=== PATIENT | male | born 1940 | race Caucasian/White ===

== ENCOUNTER 2019-09-13 12:29 | Inpatient (IN) | payer OTHER ==
[~2019-09-13] VITALS: Ht 182.9 cm; Wt 95.6 kg
[~2019-09-13 12:29] MED LIST: ACET-2065 PO; ATOR20TA37 PO; DILT-8 PO; ESOM40CA PO; FLEC100T PO; MULT-516 PO; PANT40TA5 PO; PRAV10TA2 PO; TRAV2.5D5 EACHEYE; VIT1TABL34 PO; WARF7.5T PO
--- NOTE | 2019-09-13 12:49 | NUR ---
PT PLACED ON HEART MONITOR, BP CUFF, PULSE OX. PT TENDER WITH PALPATION TO BACK BUT DENIES PAIN. NO NEURO DEFICITS NOTED. UNABLE TO DETERMINE IF MENTATION IS DIFFERENT FROM USUAL D/T HX OF DEMENTIA. PT FOLLOWS COMMANDS, SINGH EQUALLY. RA SAT 95-96%. IV SL IN PLACE.
[2019-09-13] MEDS ORDERED: SODIUM CHLORIDE 0.9% 1,000ML IVBOLUS ONE (13:00)
[2019-09-13] MEDS ORDERED: SODIUM CHLORIDE FLUSH 10ML SYR IVF ONE (13:00)
[2019-09-13 13:14] LABS: BASOPHILS # (AUTO) 0.01 x10^3/uL (0-0.1); BASOPHILS % (AUTO) 0 % (0-1); EOSINOPHILS % (AUTO) 0 % (1-7); LYMPHOCYTES # (AUTO) 0.63 x10^3/uL (1-3.4); LYMPHOCYTES % (AUTO) 4 % (22-44); MD NO; MEAN CORPUSCULAR HEMOGLOBIN 30.2 pg (27.5-34.5); MEAN CORPUSCULAR HGB CONC 33.1 g/dL (33.2-36.2); MEAN CORPUSCULAR VOLUME 91.3 fL (81-97); MEAN PLATELET VOLUME 8.1 fL (7.4-10.4); MONOCYTES # (AUTO) 0.64 x10^3/uL (0.2-0.8); MONOCYTES % (AUTO) 5 % (2-9); NEUTROPHILS # (AUTO) 12.93 x10^3/uL (1.8-6.8); NEUTROPHILS % (AUTO) 91 % (42-75); PLATELET COUNT 194 x10^3/uL (130-400); RED BLOOD COUNT 4.82 x10^6/uL (4.38-5.82)
[2019-09-13 13:18] LABS: INTERNATIONAL NORMALIZED RATIO 1.12 (0.93-1.1); PROTHROMBIN TIME 11.9 Seconds (9.6-11.5)
[2019-09-13 13:22] LABS: ALANINE AMINOTRANSFERASE 39 U/L (12-78); ALBUMIN 3.5 g/dL (3.4-5.0); ANION GAP 10 mmol/L (5-15); CALCIUM 8.6 mg/dL (8.5-10.1); CHLORIDE 109 mmol/L (98-107); CREATININE 1.34 mg/dL (0.7-1.3)
[2019-09-13 13:24] LABS: ALKALINE PHOSPHATASE 87 U/L (45-117); BILIRUBIN,TOTAL 0.9 mg/dL (0.2-1.0); TROPONIN I 0.073 ng/mL (0.000-0.045)
[2019-09-13 13:26] LABS: SALICYLATE LEVEL < 1.7 mg/dL (2.8-20.0)
--- NOTE | 2019-09-13 13:29 | NUR ---
PT TO CT.
[2019-09-13 13:45] LABS: CREATINE KINASE, TOTAL 2908 U/L (39-308)
--- NOTE | 2019-09-13 13:50 | NUR ---
PT BACK FROM CT. SLEEPING, NAD. AT BS. CALL TO LAB INQUIRING ON UA STILL SHOWING ACTIVE AND URINE TOX RESULTS BACK.
[2019-09-13 14:03] LABS: MICROSCOPIC AUTO
[2019-09-13] MEDS ORDERED: ASPIRIN 81 MG TABLET CHEW ONE (14:26)
[2019-09-13] MEDS ORDERED: ASPIRIN 81 MG TABLET CHEW PO ONE (14:30)
[2019-09-13] MEDS ORDERED: PIPERACILLIN/TAZO/PMX 3.375GM 50 ML IV ONE (15:00)
[2019-09-13] MEDS ORDERED: PIPERACILLIN/TAZO/PMX 3.375GM 50 ML ONE (15:13)
[2019-09-13] MEDS ORDERED: MEMA1CAP2 PO (15:27)
[2019-09-13] MEDS ORDERED: APIX5TAB PO (15:27)
--- NOTE | 2019-09-13 15:38 | NUR ---
ZOSYN INFUSING PER ERP ORDER. BC X 2 DRAWN PREVIOUSLY. [facility] IN TO SEE PT. PT SLEEPING INTERMITTENTLY. ORIENTED X PERSON, PLACE WHICH IS BASELINE PER . MED REC COMPLETED WITH ASSISTANCE.
[2019-09-13] MEDS ORDERED: ONDANSETRON 2MG/ML, 2ML IVPush PRN (16:00)
[2019-09-13] MEDS ORDERED: LABETALOL 5MG/ML, 20ML IVPush PRN (16:00)
[2019-09-13] MEDS ORDERED: ACETAMINOPHEN 325 MG TABLET PO PRN (16:00)
[2019-09-13] MEDS: DOXYCYCLINE 100 MG in DEXTROSE 5% 250 ML IV SCH (18:24)
[2019-09-13] MEDS: SODIUM CHLORIDE 0.9% 1,000 ML IV SCH ×2 (18:25→22:42)
[2019-09-13 18:54] VITALS: BP 140/88
[2019-09-13 19:08] LABS: TROPONIN I 0.077 ng/mL (0.000-0.045)
[2019-09-13] MEDS: LATANOPROST OPHTH 0.005%, 2.5ML EACHEYE SCH (20:46)
[2019-09-13] MEDS: APIXABAN 5 MG TABLET PO SCH (20:46)
[2019-09-13] MEDS ORDERED: TRAVOPROST OPHTH 0.004%, 2.5ML EACHEYE SCH (21:00)
[2019-09-13] MEDS: AMPICILLIN/SULBACTAM 1,500 MG in SODIUM CHLORIDE 0.9% 50 ML IV SCH (22:39)
[2019-09-14 00:57] LABS: TROPONIN I 0.069 ng/mL (0.000-0.045)
[2019-09-14 02:01] VITALS: BP 141/87
[2019-09-14] MEDS: AMPICILLIN/SULBACTAM 1,500 MG in SODIUM CHLORIDE 0.9% 50 ML IV SCH ×4 (03:41→21:39)
[2019-09-14] MEDS: SODIUM CHLORIDE 0.9% 1,000 ML IV SCH ×3 (04:56→23:40)
[2019-09-14] MEDS: DOXYCYCLINE 100 MG in DEXTROSE 5% 250 ML IV SCH ×2 (04:56→17:04)
[2019-09-14 06:14] LABS: BASOPHILS # (AUTO) 0.01 x10^3/uL (0-0.1); BASOPHILS % (AUTO) 0 % (0-1); EOSINOPHILS # (AUTO) 0.16 x10^3/uL (0-0.4); EOSINOPHILS % (AUTO) 1 % (1-7); LYMPHOCYTES # (AUTO) 1.26 x10^3/uL (1-3.4); LYMPHOCYTES % (AUTO) 11 % (22-44); MD NO; MEAN CORPUSCULAR HEMOGLOBIN 29.5 pg (27.5-34.5); MEAN CORPUSCULAR HGB CONC 32.2 g/dL (33.2-36.2); MEAN CORPUSCULAR VOLUME 91.6 fL (81-97); MEAN PLATELET VOLUME 8.6 fL (7.4-10.4); MONOCYTES # (AUTO) 0.74 x10^3/uL (0.2-0.8); MONOCYTES % (AUTO) 6 % (2-9); NEUTROPHILS # (AUTO) 9.65 x10^3/uL (1.8-6.8); NEUTROPHILS % (AUTO) 82 % (42-75); PLATELET COUNT 184 x10^3/uL (130-400); RED BLOOD COUNT 4.87 x10^6/uL (4.38-5.82); RED CELL DISTRIBUTION WIDTH 13.1 % (9.4-14.8)
[2019-09-14 06:19] LABS: ALANINE AMINOTRANSFERASE 50 U/L (12-78); ALBUMIN 3.1 g/dL (3.4-5.0); ANION GAP 7 mmol/L (5-15); CALCIUM 8.6 mg/dL (8.5-10.1); CHLORIDE 113 mmol/L (98-107); CREATININE 0.91 mg/dL (0.7-1.3)
[2019-09-14 06:21] LABS: ALKALINE PHOSPHATASE 83 U/L (45-117); BILIRUBIN,TOTAL 1.6 mg/dL (0.2-1.0); TOTAL PROTEIN 6.5 g/dL (6.4-8.2)
[2019-09-14 07:11] VITALS: BP 117/79
[2019-09-14] MEDS: APIXABAN 5 MG TABLET PO SCH (09:03)
--- NOTE | 2019-09-14 13:52 | NUR ---
Rec: [employer] intervention in a [facility]. Addendum: 09/14/19 at 1352 by Tatyana KAUR Amended: Links added.
[2019-09-14 15:25] VITALS: BP 113/66
[2019-09-14 18:39] VITALS: BP 96/53
[2019-09-14] MEDS: LATANOPROST OPHTH 0.005%, 2.5ML EACHEYE SCH (20:53)
[2019-09-14 22:08] LABS: MICROSCOPIC INDICATED
[2019-09-15 01:11] VITALS: BP 135/79
[2019-09-15] MEDS: AMPICILLIN/SULBACTAM 1,500 MG in SODIUM CHLORIDE 0.9% 50 ML IV SCH ×4 (03:59→21:49)
[2019-09-15] MEDS: DOXYCYCLINE 100 MG in DEXTROSE 5% 250 ML IV SCH ×2 (05:03→17:15)
[2019-09-15] MEDS: SODIUM CHLORIDE 0.9% 1,000 ML IV SCH (05:04)
[2019-09-15 05:44] LABS: BASOPHILS # (AUTO) 0.05 x10^3/uL (0-0.1); BASOPHILS % (AUTO) 1 % (0-1); EOSINOPHILS # (AUTO) 0.34 x10^3/uL (0-0.4); EOSINOPHILS % (AUTO) 4 % (1-7); LYMPHOCYTES # (AUTO) 1.77 x10^3/uL (1-3.4); LYMPHOCYTES % (AUTO) 19 % (22-44); MD NO; MEAN CORPUSCULAR HEMOGLOBIN 30.1 pg (27.5-34.5); MEAN CORPUSCULAR HGB CONC 32.5 g/dL (33.2-36.2); MEAN CORPUSCULAR VOLUME 92.7 fL (81-97); MEAN PLATELET VOLUME 8.3 fL (7.4-10.4); MONOCYTES # (AUTO) 0.83 x10^3/uL (0.2-0.8); MONOCYTES % (AUTO) 9 % (2-9); NEUTROPHILS % (AUTO) 68 % (42-75); PLATELET COUNT 169 x10^3/uL (130-400); RED BLOOD COUNT 4.52 x10^6/uL (4.38-5.82); RED CELL DISTRIBUTION WIDTH 13.2 % (9.4-14.8)
[2019-09-15 05:46] LABS: ALANINE AMINOTRANSFERASE 47 U/L (12-78); ALBUMIN 2.7 g/dL (3.4-5.0); ANION GAP 7 mmol/L (5-15); CALCIUM 8.1 mg/dL (8.5-10.1); CHLORIDE 111 mmol/L (98-107)
[2019-09-15 06:04] LABS: ALKALINE PHOSPHATASE 68 U/L (45-117); BILIRUBIN,TOTAL 1.6 mg/dL (0.2-1.0); CREATINE KINASE, TOTAL 3236 U/L (39-308); CREATININE 0.79 mg/dL (0.7-1.3)
[2019-09-15 06:54] VITALS: BP 155/96
--- NOTE | 2019-09-15 13:51 | NUR ---
Do not anticipate need for NAPRAPATH intervention at time of discharge. Addendum: 09/15/19 at 1352 by Tatyana KAUR Amended: Links added.
[2019-09-15 13:59] VITALS: BP 142/84
[2019-09-15] MEDS ORDERED: SODIUM CHLORIDE 0.9% 1,000 ML IV SCH (15:35)
[2019-09-15] MEDS: APIXABAN 5 MG TABLET PO SCH (17:15)
[2019-09-15] MEDS: METOPROLOL TARTRATE 25 MG TAB PO SCH (17:17)
[2019-09-15 18:32] VITALS: BP 158/84
[2019-09-15] MEDS: LATANOPROST OPHTH 0.005%, 2.5ML EACHEYE SCH (21:49)
[2019-09-16 00:32] VITALS: BP 124/72
[2019-09-16] MEDS: AMPICILLIN/SULBACTAM 1,500 MG in SODIUM CHLORIDE 0.9% 50 ML IV SCH ×2 (03:47→09:02)
[2019-09-16 04:52] LABS: BASOPHILS # (AUTO) 0.03 x10^3/uL (0-0.1); BASOPHILS % (AUTO) 0 % (0-1); EOSINOPHILS # (AUTO) 0.34 x10^3/uL (0-0.4); EOSINOPHILS % (AUTO) 4 % (1-7); LYMPHOCYTES # (AUTO) 1.46 x10^3/uL (1-3.4); LYMPHOCYTES % (AUTO) 18 % (22-44); MD NO; MEAN CORPUSCULAR VOLUME 90.8 fL (81-97); MEAN PLATELET VOLUME 8.2 fL (7.4-10.4); MONOCYTES # (AUTO) 0.53 x10^3/uL (0.2-0.8); MONOCYTES % (AUTO) 6 % (2-9); NEUTROPHILS % (AUTO) 71 % (42-75); PLATELET COUNT 174 x10^3/uL (130-400); RED BLOOD COUNT 4.65 x10^6/uL (4.38-5.82)
[2019-09-16 05:00] LABS: ALBUMIN 2.8 g/dL (3.4-5.0); ANION GAP 7 mmol/L (5-15); CALCIUM 8.2 mg/dL (8.5-10.1); CHLORIDE 110 mmol/L (98-107)
[2019-09-16 05:15] LABS: ALANINE AMINOTRANSFERASE 51 U/L (12-78); ALKALINE PHOSPHATASE 72 U/L (45-117); BILIRUBIN,TOTAL 1.2 mg/dL (0.2-1.0); CREATINE KINASE, TOTAL 2233 U/L (39-308); TOTAL PROTEIN 6.1 g/dL (6.4-8.2)
[2019-09-16] MEDS: METOPROLOL TARTRATE 25 MG TAB PO SCH ×2 (05:27→17:33)
[2019-09-16] MEDS: DOXYCYCLINE 100 MG in DEXTROSE 5% 250 ML IV SCH (05:28)
[2019-09-16 06:59] VITALS: BP 145/85
[2019-09-16] MEDS: APIXABAN 5 MG TABLET PO SCH ×2 (09:02→21:11)
[2019-09-16] MEDS: LACTATED RINGERS 1,000 ML IV SCH ×2 (10:37→17:33)
[2019-09-16] MEDS: AMOXICILLIN/CLAV 875-125MG TABLET PO SCH ×2 (10:37→21:11)
[2019-09-16] MEDS: DOXYCYCLINE 100MG TABLET PO SCH ×2 (10:37→21:11)
[2019-09-16 12:40] VITALS: BP_SYST 139; BP_SYST 142; BP_DIAS 89; BP_DIAS 90
[2019-09-16 16:31] VITALS: BP 127/86
[2019-09-16 18:48] VITALS: BP 116/73
[2019-09-16] MEDS: LATANOPROST OPHTH 0.005%, 2.5ML EACHEYE SCH (21:27)
[2019-09-17 00:30] VITALS: BP 145/83
[2019-09-17] MEDS: LACTATED RINGERS 1,000 ML IV SCH ×3 (01:58→17:56)
[2019-09-17 06:24] VITALS: BP 169/99
[2019-09-17 06:26] LABS: ALANINE AMINOTRANSFERASE 48 U/L (12-78); ALBUMIN 2.7 g/dL (3.4-5.0); ANION GAP 7 mmol/L (5-15); CALCIUM 8.3 mg/dL (8.5-10.1); CHLORIDE 109 mmol/L (98-107); CREATININE 0.74 mg/dL (0.7-1.3)
[2019-09-17] MEDS: METOPROLOL TARTRATE 25 MG TAB PO SCH ×2 (06:27→17:56)
[2019-09-17 06:30] LABS: ALKALINE PHOSPHATASE 73 U/L (45-117); BILIRUBIN,TOTAL 1.1 mg/dL (0.2-1.0); TOTAL PROTEIN 6.1 g/dL (6.4-8.2); TROPONIN I < 0.015 ng/mL (0.000-0.045)
[2019-09-17 06:41] LABS: CREATINE KINASE, TOTAL 1009 U/L (39-308)
[2019-09-17] MEDS: DOXYCYCLINE 100MG TABLET PO SCH ×2 (08:18→20:57)
[2019-09-17] MEDS: APIXABAN 5 MG TABLET PO SCH ×2 (08:18→20:57)
[2019-09-17] MEDS: AMOXICILLIN/CLAV 875-125MG TABLET PO SCH ×2 (08:18→20:57)
[2019-09-17 08:36] VITALS: BP 157/78
[2019-09-17] MEDS ORDERED: DOCUSATE 100 MG CAPSULE ONE (09:23)
[2019-09-17] MEDS: AMLODIPINE 10 MG TAB PO SCH (09:25)
[2019-09-17] MEDS ORDERED: POLYETHYLENE GLYCOL 17 GM PACKET PO PRN (09:30)
[2019-09-17] MEDS ORDERED: DOCUSATE 100 MG CAPSULE PO PRN (09:30)
[2019-09-17 12:44] VITALS: BP 104/68
[2019-09-17 19:49] VITALS: BP 149/91
[2019-09-17] MEDS: LATANOPROST OPHTH 0.005%, 2.5ML EACHEYE SCH (20:57)
[2019-09-18 02:00] VITALS: BP 141/86
[2019-09-18 06:09] LABS: ALBUMIN 2.8 g/dL (3.4-5.0); ANION GAP 6 mmol/L (5-15); CALCIUM 8.4 mg/dL (8.5-10.1); CHLORIDE 109 mmol/L (98-107)
[2019-09-18 06:14] LABS: ALANINE AMINOTRANSFERASE 47 U/L (12-78); ALKALINE PHOSPHATASE 76 U/L (45-117); BILIRUBIN,TOTAL 0.9 mg/dL (0.2-1.0); CREATINE KINASE, TOTAL 691 U/L (39-308); CREATININE 0.79 mg/dL (0.7-1.3); TOTAL PROTEIN 6.3 g/dL (6.4-8.2)
[2019-09-18 06:28] VITALS: BP 155/95
[2019-09-18] MEDS: METOPROLOL TARTRATE 25 MG TAB PO SCH (06:30)
[2019-09-18] MEDS: LACTATED RINGERS 1,000 ML IV SCH (06:30)
[2019-09-18] MEDS: AMLODIPINE 10 MG TAB PO SCH (09:55)
[2019-09-18] MEDS: APIXABAN 5 MG TABLET PO SCH (09:55)
[2019-09-18] MEDS: AMOXICILLIN/CLAV 875-125MG TABLET PO SCH (09:55)
[2019-09-18] MEDS: DOXYCYCLINE 100MG TABLET PO SCH (09:55)
[2019-09-18] MEDS ORDERED: LACTATED RINGERS 1,000 ML IV SCH (10:00)
[2019-09-18] MEDS ORDERED: METO25TA35 PO (11:25)
[2019-09-18] MEDS ORDERED: AMOX1TAB12 PO (11:25)
[2019-09-18] MEDS ORDERED: DOXY100T PO (11:25)
[2019-09-18] MEDS ORDERED: AMLO10TA8 PO (11:25)
[2019-09-18 16:34] VITALS: BP 160/83
== END 2019-09-18 17:25 | DRG 70 ==
LOC: ED 14:59 → EDIP 15:13 → 4NW 16:17 → 4WST 09-16 16:00
PROVIDERS: ADMIT Internal Medicine; ATTEND Internal Medicine
PROC: 0T9B70Z Drainage of Bladder with Drainage Device, Via Natural or Artificial Opening (ICD-10-PCS; principal; 2019-09-13)
DX: G93.41 Metabolic encephalopathy (principal); J69.0 Pneumonitis due to inhalation of food and vomit; M62.82 Rhabdomyolysis; D68.69 Other thrombophilia; N17.9 Acute kidney failure, unspecified; I24.8 Other forms of acute ischemic heart disease; F02.80 Dementia in other diseases classified elsewhere, unspecified severity, without behavioral disturbance, psychotic disturbance, mood disturbance, and anxiety; G30.1 Alzheimer's disease with late onset; I48.0 Paroxysmal atrial fibrillation; E78.5 Hyperlipidemia, unspecified; Z96.649 Presence of unspecified artificial hip joint; Z66 Do not resuscitate; R73.9 Hyperglycemia, unspecified; I10 Essential (primary) hypertension; Z03.818 Encounter for observation for suspected exposure to other biological agents ruled out; Z86.73 Personal history of transient ischemic attack (TIA), and cerebral infarction without residual deficits; Z79.899 Other long term (current) drug therapy
CPT/HCPCS: 36415; 70450; 71045; 72125; 80053; 80307; 81001; 82140; 82550; 83605; 83735; 84439; 84443; 84481; 84484; 85025; 85610; 87040; 93005; 93308; 93321; 93325; 96374; 99291; G0378; J2543; J7060; J0295; J7030; J7120; U0001-CS